=== PATIENT | male | born 1980 | race Hispanic/Latino ===

== ENCOUNTER 2017-07-02 04:30 | Emergency (ER) | payer MEDICAID ==
[2017-07-02 04:30] VITALS: BMI 36.5
[2017-07-02 04:47] VITALS: BP 153/88; PULSE 88; RESP 20; TEMP 97.8; O2SAT 98
--- NOTE | 2017-07-02 05:10 | C.PDOC ---
History Of Present Illness 37 year old male is brought to the ED by ambulance for evaluation of nausea and intermittent episodes of vomiting which began after a recent change in medication. Patient states his PMD switched his medication from Dilantin to another anticonvulsant. Contrary to triage, patient denies abdominal pain and is able to tolerate fluids at this time. Patient denies fever, chills, diarrhea. Time Seen by Provider: 07/02/17 04:50 Chief Complaint (Nursing): Abdominal Pain History Per: Patient History/Exam Limitations: no limitations Onset/Duration Of Symptoms: Days, Intermittent Episodes Current Symptoms Are (Timing): Still Present Radiation Of Pain To:: None Quality Of Discomfort: denies: "Pain" Associated Symptoms: Nausea, Vomiting. denies: Fever, Chills, Diarrhea Additional History Per: Patient Past Medical History Reviewed: Historical Data, Nursing Documentation, Vital Signs Vital Signs: Last Vital Signs Temp 97.8 F 07/02/17 04:51 Pulse 88 07/02/17 04:51 Resp 20 07/02/17 04:51 BP 153/88 H 07/02/17 04:51 Pulse Ox 98 07/02/17 06:11 - Medical History PMH: Asthma, Seizures Denies: Depression Surgical History: No Surg Hx - [facility] Procedures CLOSURE SKIN & SUBCUTANEOUS NEC (01/31/12) REMOV THERAPEUT DEV NEC (02/09/12) TETANUS TOXOID ADMINIST (01/31/12) Family History: States: Unknown Family Hx - Social History Hx Tobacco Use: Yes (0.5 PPD) Hx Alcohol Use: Yes (SOCIALLY) Hx Substance Use: Yes - Immunization History Hx Tetanus Toxoid Vaccination: Yes Hx Influenza Vaccination: Yes Hx Pneumococcal Vaccination: Yes Review Of Systems Constitutional: Negative for: Fever, Chills Gastrointestinal: Positive for: Nausea, Vomiting. Negative for: Abdominal Pain , Diarrhea Physical Exam - Physical Exam Appears: Well, Non-toxic, No Acute Distress Skin: Normal Color, Warm, Dry Eye(s): bilateral: EOMI, Other (contricted, but reactive pupils) Oral Mucosa: Moist Neck: Supple Chest: Symmetrical, No Deformity, No Tenderness Cardiovascular: Rhythm Regular, No Murmur Respiratory: Normal Breath Sounds, No Rales, No Rhonchi, No Wheezing Gastrointestinal/Abdominal: Soft, No Tenderness, No Guarding, No Rebound Extremity: Normal ROM, Capillary Refill (less than 2 seconds ) Neurological/Psych: Oriented x3, Normal Speech, Normal Cognition Gait: Steady ED Course And Treatment O2 Sat by Pulse Oximetry: 98 (on RA) Pulse Ox Interpretation: Normal Progress Note: On reassessment, patient is resting comfortably, is showing no signs of distress and is stable for discharge. Patient is advised to follow up with his PMD within 1-2 days for management of adjusting his medications and/or return to the ED if symptoms persist or worsen. Disposition - Disposition Referrals: Rajan Martinez MD [Primary Care Provider] - Disposition: HOME/ ROUTINE Disposition Time: 05:29 Condition: STABLE Additional Instructions: Please follow up with your doctor Return to ER if worse Forms: General Discharge Instructions - Clinical Impression Clinical Impression: Encounter for medical assessment - PA / CONTINUOUS IMPROVEMENT CONSULTANT / Resident Statement MD/DO has reviewed & agrees with the documentation as recorded. - Scribe Statement The provider has reviewed the documentation as recorded by the Scribe (Reyna Fierro) All medical record entries made by the Scribe were at my direction and personally dictated by me. I have reviewed the chart and agree that the record accurately reflects my personal performance of the history, physical exam, medical decision making, and the department course for this patient. I have also personally directed, reviewed, and agree with the discharge instructions and disposition.
== END 2017-07-02 05:37 | disposition home or self-care (01) ==
LOC: C.ER 04:30 → SUPCPDRO 04:30 → C.ER 05:37
DX: Z04.8 Encounter for examination and observation for other specified reasons (principal)

== ENCOUNTER 2017-07-03 14:56 | Emergency (ER) | payer MEDICAID ==
[2017-07-03 14:57] VITALS: BMI 36.5
[2017-07-03 15:20] VITALS: BP 164/82; PULSE 79; RESP 20; TEMP 98.2; O2SAT 95
[2017-07-03 16:13] LABS: BASO # 0.1 K/uL (0.0-0.2); BASO % 0.7 % (0.0-2.0); EOS % 0.5 % (0.0-4.0); HEMATOCRIT 48.5 % (35.0-51.0); LYMPH # 1.2 K/uL (1.0-4.3); LYMPH % 16.5 % (20.0-40.0); MEAN CORPUSCULAR HEMOGLOBIN 27.9 pg (27.0-31.0); MEAN CORPUSCULAR HGB CONC 32.4 g/dL (33.0-37.0); MEAN PLATELET VOLUME 8.2 fL (7.2-11.7); MONO # 0.6 K/uL (0.0-0.8); NRBC % 0.1 % (0.0-2.0); RED CELL DISTRIBUTION WIDTH 13.9 % (11.5-14.5); WHITE BLOOD COUNT 7.2 K/uL (4.8-10.8)
[2017-07-03 16:37] LABS: ALCOHOL SERUM < 10 mg/dl (0-10); ALKALINE PHOSPHATASE 82 U/L (38-126); ALT/SGPT 56 U/L (21-72); AST/SGOT 41 U/L (17-59); BILIRUBIN,TOTAL 0.9 mg/dL (0.2-1.3); BLOOD UREA NITROGEN 17 mg/dL (9-20); CALCIUM 8.9 mg/dl (8.6-10.4); CARBON DIOXIDE 29 mmol/L (22-30); CHLORIDE 102 mmol/L (98-107); GFR AFRICAN-AMERICAN > 60; GLUCOSE,RANDOM 101 mg/dL (75-110); POTASSIUM 3.8 mmol/L (3.6-5.2); SODIUM 139 mmol/L (132-148); TOTAL PROTEIN 8.6 g/dL (6.3-8.3)
[2017-07-03 16:49] LABS: ALB/GLOB RATIO 1.1 (1.0-2.1)
[2017-07-03 17:21] LABS: RBC URINE 10 /hpf (0-3); URINE BILIRUBIN NEGATIVE (NEGATIVE); URINE BLOOD NEGATIVE (NEGATIVE); URINE COLOR Yellow (YELLOW); URINE GLUCOSE (UA) NORMAL (Normal); URINE KETONE TRACE mg/dL (NEGATIVE); URINE LEUKOCYTE ESTERASE NEG Leu/uL (Negative); URINE PROTEIN 1+ mg/dL (NEGATIVE); WBC URINE 2 /hpf (0-5)
--- NOTE | 2017-07-03 19:10 | C.PDOC ---
Time Seen by Provider: 07/03/17 15:15 Chief Complaint (Nursing): Psychiatric Evaluation History Per: Patient, EMS Onset/Duration Of Symptoms: Unknown Current Symptoms Are (Timing): Still Present Suicide/Self Injury Attempted (Context): None Modifying Factor(s): Marijuana, Other (PCP) Severity: Moderate Associated Symptoms: Paranoia. denies: Suicidal Thoughts, Suicidal Plan Additional History Per: Prior Records Past Medical History Reviewed: Historical Data, Nursing Documentation, Vital Signs Vital Signs: Last Vital Signs Temp 98.2 F 07/03/17 15:08 Pulse 79 07/03/17 15:08 Resp 20 07/03/17 15:08 BP 164/82 H 07/03/17 15:08 Pulse Ox 95 07/03/17 15:08 - Medical History PMH: Asthma, Seizures - [facility] Procedures CLOSURE SKIN & SUBCUTANEOUS NEC (01/31/12) REMOV THERAPEUT DEV NEC (02/09/12) TETANUS TOXOID ADMINIST (01/31/12) Family History: States: Unknown Family Hx - Social History Hx Tobacco Use: Yes (0.5 PPD) Hx Alcohol Use: Yes (SOCIALLY) Hx Substance Use: Yes - Immunization History Hx Tetanus Toxoid Vaccination: Yes Hx Influenza Vaccination: Yes Hx Pneumococcal Vaccination: Yes Review Of Systems Constitutional: Negative for: Fever Cardiovascular: Negative for: Chest Pain Respiratory: Negative for: Shortness of Breath Gastrointestinal: Negative for: Vomiting, Abdominal Pain Musculoskeletal: Negative for: Neck Pain Skin: Negative for: Rash Neurological: Negative for: Weakness, Numbness Psych: Negative for: Psychosis, Suicidal ideation Physical Exam - Physical Exam Appears: Non-toxic, No Acute Distress Skin: Normal Color, Warm, Dry, No Rash Head: Atraumatic, Normacephalic Eye(s): bilateral: PERRL Neck: Normal ROM, Supple Cardiovascular: Rhythm Regular Respiratory: Normal Breath Sounds, No Accessory Muscle Use Gastrointestinal/Abdominal: Soft, No Tenderness Extremity: Normal ROM Neurological/Psych: Oriented x3, Normal Motor, Normal Sensation, Inappropriate Response To Command Gait: Steady ED Course And Treatment - Laboratory Results Result Diagrams: 07/03/17 16:06 07/03/17 16:06 O2 Sat by Pulse Oximetry: 95 Pulse Ox Interpretation: Normal Progress Note: Pt was evaluated by the industrial relations worker who d/w Dr. German. They psychiatrically cleared pt for discharge home. Pt then walked out of the ED before I can reassess him or discharge him. Disposition - Disposition Disposition: ELOPEMENT - ER ONLY Disposition Time: 18:45 Condition: FAIR - Clinical Impression Clinical Impression: Polysubstance abuse, Patient left before treatment completed
== END 2017-07-03 19:03 | disposition left against medical advice (07) ==
LOC: C.ER 14:56
DX: F19.10 Other psychoactive substance abuse, uncomplicated (principal)